=== PATIENT | male | born 1975 | race Two or more races ===

== ENCOUNTER 2018-01-02 08:42 | Emergency (ER) | payer OTHER ==
[~2018-01-02] VITALS: Ht 180.3 cm; Wt 86.8 kg
[2018-01-02 08:59] VITALS: BP 140/86
[2018-01-02] MEDS ORDERED: TRAMADOL HCL50 MG PO (10:56)
[2018-01-02] MEDS ORDERED: PERIDEX473 ML MM (10:56)
[2018-01-02] MEDS ORDERED: AUGMENTIN875 MG PO (10:56)
== END 2018-01-02 11:20 | disposition home or self-care (01) ==
LOC: EME 08:42
DX: S01.511A Laceration without foreign body of lip, initial encounter (principal); S81.812A Laceration without foreign body, left lower leg, initial encounter; R68.84 Jaw pain; R51 Headache; V74.6XXA Passenger on bus injured in collision with heavy transport vehicle or bus in traffic accident, initial encounter; Y92.410 Unspecified street and highway as the place of occurrence of the external cause; Z23 Encounter for immunization